=== PATIENT | male | born 1930 | race Caucasian/White ===

== ENCOUNTER → 2018-01-03 | Outpatient (CLI) | payer MEDICARE ==
--- NOTE | 2018-01-03 13:07 | XR ---
EXAMINATION TYPE: XR KUB DATE OF EXAM: 01/03/2018 11:59 AM CLINICAL HISTORY: Stones in bladder per patient. Kidney stone per order. TECHNIQUE: Two Upright KUB images of the abdomen are obtained. COMPARISON: CT abdomen and pelvis May 05, 2010. FINDINGS: No definite nephrolithiasis. Scattered pelvic phleboliths are present. Vascular calcificati on is seen. No definite bladder calculi. There is overall nonobstructive bowel gas pattern. There is partial visualization of pacemaker wire. There is new small left pleural effusion or pleural thickening. There is multilevel spurring in the s pine. There is moderate joint space loss and spurring of both hips. IMPRESSION: No definite nephrolithiasis.
== END | disposition home or self-care (01) ==
LOC: RADXRMAIN 11:43
PROVIDERS: ATTEND Urology
DX: N20.0 Calculus of kidney (principal)
CPT/HCPCS: 74018

== ENCOUNTER → 2018-01-23 | Outpatient (CLI) | payer MEDICARE ==
[2018-01-23 10:31] LABS: Basophils % (A) 1 %; Eosinophils # (A) 0.1 k/uL (0-0.7); Eosinophils % (A) 1 %; HCT 42.5 % (39.0-53.0); HGB 14.1 gm/dL (13.0-17.5); Lymphocytes # (A) 0.9 k/uL (1.0-4.8); Lymphocytes % (A) 16 %; MCH 30.8 pg (25.0-35.0); MCHC 33.1 g/dL (31.0-37.0); MCV 93.2 fL (80.0-100.0); Mean Platelet Volume 6.9; Monocytes # (A) 0.5 k/uL (0-1.0); Monocytes % (A) 8 %; Neutrophils # (A) 4.2 k/uL (1.3-7.7); Neutrophils % (A) 73 %; Platelet Count 221 k/uL (150-450); RBC 4.57 m/uL (4.30-5.90); WBC 5.8 k/uL (3.8-10.6)
[2018-01-23 10:32] LABS: Calcium 9.1 mg/dL (8.4-10.2); Potassium 4.2 mmol/L (3.5-5.1)
== END | disposition home or self-care (01) ==
LOC: LABPAT 08:50
PROVIDERS: ATTEND Urology
DX: Z01.818 Encounter for other preprocedural examination (principal); Z01.812 Encounter for preprocedural laboratory examination; I10 Essential (primary) hypertension; N21.9 Calculus of lower urinary tract, unspecified; N40.1 Benign prostatic hyperplasia with lower urinary tract symptoms; R35.0 Frequency of micturition; R31.29 Other microscopic hematuria; Z79.899 Other long term (current) drug therapy
CPT/HCPCS: 36415; 80048; 85025; 87086; 93005

== ENCOUNTER 2018-01-29 11:53 | Day surgery (SDC) | payer MEDICARE ==
[2018-01-26 09:26] VITALS: BMI 27.2
--- NOTE | 2018-01-29 07:50 | P.GSHP ---
History of Present Illness H&P Date: 01/29/18 The patient is an 86 yo male with persistent gross hematuria He underwent cystoscopy which identified a stones in his prostate plus and obstructing prostate He comes for a turp and removal of prostatic stone that is causing the bleeding - Review of Systems ROS unobtainable: Reports: due to endotracheal tube, due to mental status Past Medical History Past Medical History: Atrial Fibrillation, Chest Pain / Angina, CVA/TIA, Hypertension, Prostate Disorder Additional Past Medical History / Comment(s): bradycardia History of Any Multi-Drug Resistant Organisms: None Reported Past Surgical History: Heart Catheterization With Stent, Orthopedic Surgery, Pacemaker, Prostate Surgery Additional Past Surgical History / Comment(s): RIGHT SHOULDER ROTATOR AND LEFT INDEX FINGER REMOVED Past Anesthesia/Blood Transfusion Reactions: No Reported Reaction Date of Last Stent Placement:: 09/2011 Type of Cardiac Device: Permanent Pacemaker Device Placement Date:: UNK Past Psychological History: No Psychological Hx Reported Smoking Status: Former smoker Past Alcohol Use History: None Reported Past Drug Use History: None Reported - Past Family History Mother Family Medical History: Coronary Artery Disease (CAD), CVA/TIA, Diabetes Mellitus, Rheumatoid Arthritis (RA) Father Family Medical History: Coronary Artery Disease (CAD) Medications and Allergies Home Medications Medication Instructions Recorded Confirmed Type Valsartan [Diovan] 160 mg PO DAILY 02/21/15 01/26/18 History amLODIPine BESYLATE [Norvasc] 10 mg PO DAILY 02/21/15 01/26/18 History Tamsulosin HCl [Flomax] 0.4 mg PO DAILY 04/11/16 01/26/18 History Allergies Allergy/AdvReac Type Severity Reaction Status Date / Time Penicillins Allergy Rash/Hives Verified 01/26/18 09:57 rofecoxib [From Vioxx] Allergy Unknown Verified 01/26/18 10:05 aspirin AdvReac Abdominal Verified 01/26/18 09:57 Pain Surgical - Exam - General well developed, well nourished, no distress - Eyes PERRL - ENT no hearing loss - Neck trachea midline - Respiratory normal expansion, normal respiratory effort - Cardiovascular Rhythm: regular - Abdomen Abdomen: soft, non tender - Genitourinary normal penis with no external lesions, testicles present - Integumentary no rash, no growths - Neurologic normal coordination, normal sensation - Musculoskeletal normal gait, normal posture - Psychiatric oriented to time, oriented to person, oriented to place, speech is normal, memory intact Assessment and Plan Assessment: Impression; Recurrent gross hematuria secondary to bph and prostatic calcifications Plan: turp and removal of prostatic stones
[~2018-01-29 11:53] MED LIST: CLINDAMYCIN 900 MG in DEXTROSE 5% IN WATER 50 ML IVPB ONE; DEXAMETHASONE SOD PHOSPHATE 10 MG/ML 1 ML VIAL IV ONE; GENTAMICIN 130 MG in SODIUM CHLORIDE 0.9% 100 ML IVPB ONE; LIDOCAINE 1% 20 ML VIAL (10MG/ML) FOR IV START INTRADERMA PRN; MIDAZOLAM 2 MG/2 ML VIAL IV PRN; ONDANSETRON 4 MG/2 ML VIAL IVP ONE; fentaNYL (PF) 50 MCG/ML 2 ML AMP IV PRN
[2018-01-29] MEDS ORDERED: LACTATED RINGERS 1,000 ML IV ONE (13:11)
[2018-01-29] MEDS ORDERED: fentaNYL (PF) 50 MCG/ML 2 ML AMP ONE (14:38)
[2018-01-29] MEDS ORDERED: MIDAZOLAM 2 MG/2 ML VIAL ONE (14:38)
[2018-01-29] MEDS ORDERED: diphenhydrAMINE 50 MG/ML 1 ML VIAL ONE (14:38)
[2018-01-29] MEDS ORDERED: GENTAMICIN 40 MG/ML 2 ML VIAL ONE (14:38)
[2018-01-29] MEDS ORDERED: MAG HYDROX/AL HYDROX/SIMETH 30 ML CUP PO PRN (16:12)
[2018-01-29] MEDS ORDERED: BELLADONNA-OPIUM 16.2-60 MG 1 EACH SUPP RECTAL PRN (16:12)
--- NOTE | 2018-01-29 16:18 | P.OP ---
Date of Procedure: 01/29/18 Preoperative Diagnosis: Persistent prostate bleeding, prostate calculi Postoperative Diagnosis: Same Procedure(s) Performed: Bipolar TURP Anesthesia: GETA, spinal Surgeon: Jacek Parnell Estimated Blood Loss (ml): 50 Pathology: other (Prostate) Condition: stable Disposition: PACU Indications for Procedure: The patient is an 87-year-old gentleman who is had persistent prostate bleeding. Cystoscopy identified regrowth of the prostate treated with resection many years ago with prostatic calcifications due to scarring rather than prosthetic calculi. He comes for. Removal of prosthetic calcifications Description of Procedure: Patient brought to the operating room. He came a successful spinal anesthesia. He's placed lithotomy position with a sterile prep and drape. Under direct vision the 25-Tamazight sheath and direct vision obturator and Foroblique lenses introduced in the urethra. Anterior urethra is normal. The prostatic urethra shows nodular regrowth of his prostate with embedded calcifications, edema and inflammation of the prostate. The bladder chacon heavily trabeculated. With the bipolar loop and super second loop. I resect the left lateral wall the right lateral wall and the redundant floor tissue. In the tissue resection the calcifications are also removed. Then of the procedure bleeding is relatively well-controlled however due to the scarred and the prostate is not completely contract. I freed the bladder of prostatic chips with the Sol evacuator. I elect introduce a 20-Tamazight 3-way catheter in the bladder as a regular Barriga has eating. With the 3 a catheter in light irrigation the urine is clear. The patient's awake and returned recovery in good condition. He tolerated procedure well. Blood loss is 50 mL. He'll be admitted to the hospital postoperatively to observe his vital signs as he is 87-year-old and continuous irrigation.
[2018-01-29] MEDS: DEXTROSE 5%-0.45% NACL 1,000 ML IV SCH (18:00)
[2018-01-29] MEDS ORDERED: SODIUM CHLORIDE 0.9% IRRIGATIO 3,000 ML IRRIGATION ONE ×2 (18:06→22:27)
[2018-01-29] MEDS: LACTATED RINGERS 1,000 ML IV SCH ×2 (18:10→18:11)
[2018-01-29] MEDS: KETOROLAC 30 MG/ML 1 ML VIAL IVP SCH ×2 (18:12→23:25)
[2018-01-29] MEDS: DOCUSATE 100 MG CAP PO SCH (20:23)
[2018-01-30] MEDS ORDERED: SODIUM CHLORIDE 0.9% IRRIGATIO 3,000 ML IRRIGATION PRN (02:59)
[2018-01-30] MEDS: KETOROLAC 30 MG/ML 1 ML VIAL IVP SCH ×3 (05:36→17:20)
[2018-01-30] MEDS: DEXTROSE 5%-0.45% NACL 1,000 ML IV SCH ×2 (05:36→19:33)
--- NOTE | 2018-01-30 06:50 | P.PN ---
Subjective Progress Note Date: 01/30/18 The patient is in his first postoperative day from a bipolar TURP. The urine is still slightly bloody. I will discontinue the irrigation and observe him another 24 hours. At his age of 87 with the bleeding had rather keep him in the hospital to discharge him home only to have him return. His vital signs are stable is afebrile. He is tolerating a regular diet. He'll ambulate. I will continue with IV fluids. Objective - Vital Signs Vital signs: Vital Signs Temp 97.8 F 01/30/18 00:50 Pulse 72 01/30/18 03:38 Resp 16 01/30/18 03:38 BP 123/70 01/30/18 00:50 Pulse Ox 96 01/30/18 00:50 Intake & Output 01/29/18 01/29/18 01/30/18 06:59 18:59 06:59 Intake Total 356 465 Output Total 50 1250 Balance 306 -785 Weight 86.183 kg Intake: IV 356 Intake, IV Titration 225 Amount Dextrose 5%-0.45% NaCl 1, 225 000 ml @ 75 mls/hr IV . [id number] [facility] Rx#:[id number] Oral 240 Output: Urine 1250 Estimated Blood Loss 50 Other: Voiding Method Indwelling Catheter
[2018-01-30] MEDS: VALSARTAN 160 MG TAB PO SCH (08:15)
[2018-01-30] MEDS: amLODIPine 10 MG TAB PO SCH (08:15)
[2018-01-30] MEDS: DOCUSATE 100 MG CAP PO SCH ×2 (08:16→19:33)
[2018-01-31] MEDS: KETOROLAC 30 MG/ML 1 ML VIAL IVP SCH ×3 (00:44→12:01)
[2018-01-31] MEDS: ACETAMINOPHEN TAB 325 MG TAB PO PRN ×2 (08:11→12:02)
[2018-01-31 08:17] VITALS: BP 145/72; PULSE 73; RESP 16; TEMP 96.9
--- NOTE | 2018-01-31 09:03 | P.DS ---
Providers Date of admission: 01/29/2018 Attending physician: Jacek Parnell Primary care physician: [facility] Hospital Course: Patient is 87. He has had recurrent prostatic bleeding. He has regrowth of his prostate and prosthetic calcification. He was admitted for a TURP which he underwent uneventfully. Due to his age and the limited level bleeding I elected to place continuous bladder irrigation I kept in the hospital overnight. Yesterday morning the urine was still pink therefore I kept him in the hospital. This morning the urine is very light tea. The catheter will be removed. If he voids without difficulty be discharged home. He'll follow-up in the office in one week. Postoperative instructions of been given. Condition is good. Patient Condition at Discharge: Good Plan - Discharge Summary Discharge Rx Participant: No New Discharge Prescriptions: New Ketorolac [Toradol] 10 mg PO Q6HR PRN #14 tab PRN Reason: Pain No Action RX: amLODIPine BESYLATE [Norvasc] 10 mg PO DAILY RX: Valsartan [Diovan] 160 mg PO DAILY Tamsulosin HCl [Flomax] 0.4 mg PO DAILY Discharge Medication List RX: Valsartan [Diovan] 160 mg PO DAILY 02/21/15 [History] RX: amLODIPine BESYLATE [Norvasc] 10 mg PO DAILY 02/21/15 [History] Tamsulosin HCl [Flomax] 0.4 mg PO DAILY 04/11/16 [History] Ketorolac [Toradol] 10 mg PO Q6HR PRN #14 tab 01/29/18 [Rx] Follow up Appointment(s)/Referral(s): Jacek Parnell MD [STAFF PHYSICIAN] - 1 Week () Activity/Diet/Wound Care/Special Instructions: Limited activity. No heavy lifting. Resume all home medications other than blood thinner. Discharge Disposition: HOME SELF-CARE
[2018-01-31] MEDS: VALSARTAN 160 MG TAB PO SCH (10:05)
[2018-01-31] MEDS: amLODIPine 10 MG TAB PO SCH (10:06)
[2018-01-31] MEDS: DOCUSATE 100 MG CAP PO SCH (10:06)
[2018-01-31] MEDS: DEXTROSE 5%-0.45% NACL 1,000 ML IV SCH (11:58)
== END 2018-01-31 12:18 | disposition home or self-care (01) ==
LOC: OR 11:53 → 3SUR 16:21 → OR 01-31 12:18
PROVIDERS: ATTEND Urology
DX: N40.1 Benign prostatic hyperplasia with lower urinary tract symptoms (principal); N13.8 Other obstructive and reflux uropathy; N21.0 Calculus in bladder; N41.0 Acute prostatitis; N41.1 Chronic prostatitis; N41.2 Abscess of prostate; R31.0 Gross hematuria; I48.91 Unspecified atrial fibrillation; I10 Essential (primary) hypertension; R00.1 Bradycardia, unspecified; I20.9 Angina pectoris, unspecified; I08.1 Rheumatic disorders of both mitral and tricuspid valves; I27.20 Pulmonary hypertension, unspecified; Z95.5 Presence of coronary angioplasty implant and graft; Z95.0 Presence of cardiac pacemaker; Z79.899 Other long term (current) drug therapy; Z86.73 Personal history of transient ischemic attack (TIA), and cerebral infarction without residual deficits; Z87.891 Personal history of nicotine dependence; Z88.6 Allergy status to analgesic agent; Z88.0 Allergy status to penicillin
CPT/HCPCS: 88305; 52601; C1769; C1894; C1758; J2250; J1200; J1580; J1100; J2405; J3010; J1885 ×3